=== PATIENT | male | born 1955 | race Caucasian/White ===

== ENCOUNTER 2018-08-24 14:36 | Outpatient (CLI) | payer BC ==
--- NOTE | 2018-08-24 15:22 | ULT ---
Ultrasound Doppler duplex carotid: 08/24/2018 HISTORY: 62-year-old male with peripheral vascular disease and right carotid bruit TECHNIQUE: Grayscale, color-flow, and spectral analysis, of major arteries of neck FINDINGS: Moderate calcified plaque at bilateral proximal internal carotid arteries including origins at caroti d bulbs. Highest peak systolic velocities in the internal carotid arteries: Right: 108 cm/s Left: 95 cm/s ICA/CCA ratios: Right: 0.9 Left: 0.8 Vertebral artery flow antegrade bilaterally. Incidentally, there is elevated peak systolic velocity of 235 cm second of right external carotid art santosh representing high-grade stenosis there. IMPRESSION: 1.) Atherosclerosis of proximal internal carotid arteries. 2) no evidence of hemodynamically significant stenosis by velocities in the internal carotid arteries . 3) however, this is contrary to the results of the 06/30/2017 carotid Doppler ultrasound which demonst rated high velocity at the carotid bulb on the right. 4) consider CT angiogram of neck with contrast. 5) incidental finding of high-grade stenosis at origin of right external carotid artery.
== END 2018-08-24 14:37 | disposition home or self-care (01) ==
LOC: BICULT 14:36
PROVIDERS: ATTEND Internal Medicine Hematology & Oncology
DX: I73.9 Peripheral vascular disease, unspecified (principal); I65.23 Occlusion and stenosis of bilateral carotid arteries
CPT/HCPCS: 93880

== ENCOUNTER 2019-10-13 08:29 | Outpatient (CLI) | payer BC ==
--- NOTE | 2019-10-13 10:06 | CT ---
EXAM: CT ANGIOGRAM OF THE NECK INDICATION: Carotid artery stenosis COMPARISON: 09/17/2018 TECHNIQUE: CT angiogram of the neck are performed in the axial plane. Three-dimensional reformatted i mages are submitted for interpretation. FINDINGS: POSTCONTRAST CT OF BRAIN: Pathologic enhancement: No pathologic enhancement the visualized brain. Postcontrast soft tissue neck CT: Aerodigestive tract:Aerodigestive tract is patent. No mucosal abnormality. Sinuses: Adequate aeration. Orbits: Bilateral ocular lenses are appropriately located. Both globes are intact. Retrobulbar fat is preserved. Symmetric attenuation the optic nerves and ocular rectus muscles. Salivary glands:Symmetric attenuation Thyroid gland: Appropriate attenuation Lymph nodes: No evidence of lymphadenopathy by size criteria. Paraspinal muscles: Symmetric attenuation of the sternocleidomastoid muscles. Appropriate attenuation of the paraspinal muscles. Cervical spine:Vertebral body height is maintained. No fracture. No significant central canal stenosi s or significant neural foraminal narrowing. Limited evaluation by technique. Upper mediastinum and lung apices: No acute abnormality CTA OF THE NECK WITH CONTRAST: Aorta: Appropriate enhancement and luminal diameter Right carotid artery: Appropriate enhancement and luminal diameter of the origin of the right carotid artery. Common carotid artery has appropriate enhancement and luminal diameter. Based upon NASCET criteria, stable short segment mild (50%) stenosis involving the right carotid bifurcation and proxim al internal carotid artery. The degree of stenosis is unchanged. The mid to distal internal carotid artery has appropriate enhancement diameter. Left carotid: Appropriate enhancement and luminal diameter the origin left carotid artery. The common carotid artery, carotid bifurcation and internal cardioverter appropriate enhancement based upon NASCET criteria. Mild atherosclerosis involving the left carotid bifurcation and proximal internal ca rotid artery Subclavian arteries:Patent Vertebral arteries:Patent throughout their course in the neck. Dominant left IMPRESSION: 1. Stable mild stenosis involving the right carotid bifurcation and proximal internal carotid artery.
== END 2019-10-13 08:30 | disposition home or self-care (01) ==
LOC: BICCT 08:29
PROVIDERS: ATTEND Internal Medicine
DX: I65.21 Occlusion and stenosis of right carotid artery (principal)
CPT/HCPCS: 70498; 82565

== ENCOUNTER 2020-09-06 13:58 | Outpatient (CLI) | payer BC | END 2020-09-06 13:59 | disposition home or self-care (01) | LOC: BICULT 13:58 | PROVIDERS: ATTEND Internal Medicine | DX: I65.21 Occlusion and stenosis of right carotid artery (principal) | CPT/HCPCS: 93880 ==